=== PATIENT | female | born 1995 | race Caucasian/White ===

== ENCOUNTER 2016-12-02 19:03 | Emergency (ER) | payer OTHER ==
[~2016-12-02] VITALS: Ht 162.6 cm; Wt 56.5 kg
[~2016-12-02 19:03] MED LIST: Ibuprofen PO
[2016-12-02 19:34] VITALS: Ht 162.6 cm; Wt 56.5 kg
[2016-12-02 20:30] LABS: URINE BLOOD (Dip) POC 3+ (NEGATIVE)
--- NOTE | 2016-12-02 20:32 | RADRPT ---
PROCEDURE: US Pelvis. CLINICAL INDICATION: Abnormal vaginal bleeding. TECHNIQUE: The pelvis was evaluated with transabdominal and transvaginal sonography in the axial a nd sagittal planes. COMPARISON: No prior study is available for comparison. FINDINGS: Uterus: 8.0 x 4.0 x 5.6 cm. Endometrium: 12.2 mm. Right ovary: 2.3 x 1.3 x 2.2 cm. Left ovary: 3.8 x 2.3 x 3.3 cm. Uterine masses: None. Ovarian masses: None. Color Doppler and pulsed Doppler sonography demonstrate normal flow to the ova talib. Other pelvic masses: None. Free fluid: None. IMPRESSION: 1. Normal pelvic ultrasound. RPTAT: QQ .Cam Leonard MD, MD Date Time Electronically viewed and signed by .Cam Leonard MD, on 12/02/2016 20:32 .R/
[2016-12-02] MEDS ORDERED: MEDR2.5T PO (20:52)
--- NOTE | 2016-12-02 21:01 | ERD ---
ER Documentation Chief Complaint Date/Time DATE: 12/02/16 TIME: 20:59 Chief Complaint Vaginal bleed with back pain and cramping. not HPI This is a 21-year-old female presents to the ER with vaginal spotting that started 3 weeks ago. Patient is also complaining of back pain and mild pelvic cramping. Patient states that she is using panty liners for bleeding and bleeding is worse whenever she urinates or after she takes a shower. Patient denies any vaginal discharge. Patient denies any urinary frequency or dysuria. Patient denies any weakness or dizziness. ROS 12 point review of systems was done, all negative except per HPI. Medications Home Meds Active Scripts Medroxyprogesterone Acetate* (Provera*) 2.5 Mg Tablet, 2.5 MG PO DAILY for 5 Days, TAB Prov:COSTA JOHNSON 12/02/16 [Ibuprofen] 600 MG TAB No Conflict Check, 600 MG PO Q6, #20 TAB 0 Refills Prov:COLE DAHL MD 09/26/15 Allergies Allergies: Coded Allergies: No Known Allergy (Unverified , 09/24/15) PMhx/Soc Hx Alcohol Use: No Hx Substance Use: No Hx Tobacco Use: No Smoking Status: Never smoker Physical Exam Vitals Vital Signs Date Time Temp Pulse Resp B/P Pulse Ox O2 Delivery O2 Flow Rate FiO2 12/02/16 19:34 98.2 72 20 113/70 100 Physical Exam GENERAL: The patient is well developed and appropriate for usual state of health , in no apparent distress. HEENT: Atraumatic. CHEST: Clear to auscultation bilaterally. There are no rales, wheezes or rhonchi. HEART: Regular rate and rhythm. No murmurs, clicks, rubs or gallops. ABDOMEN: Soft, nontender and nondistended. Good bowel sounds. No rebound or guarding. No gross peritonitis. No gross organomegaly or masses. No Be sign or McBurney point tenderness. BACK: No midline or flank tenderness. NEURO: Alert and oriented Results 24 hrs Laboratory Tests Test 12/02/16 20:30 Bedside Urine pH (LAB) 7.0 Bedside Urine Protein (LAB) 1+ Bedside Urine Glucose (UA) Negative Bedside Urine Ketones (LAB) Negative Bedside Urine Blood 3+ Bedside Urine Nitrite (LAB) Negative Bedside Urine Leukocyte Esterase (L Negative Procedures/MDM This is a 21-year-old female presents to the ER with vaginal bleeding. At this time suspicion for anemia is low. Patient has only been spotting and only uses panty liners. She does not have any weaknesses or fatigue. Suspicion for is low. Suspicion for urinary tract infection or pyelonephritis is low. She likely has dysfunctional uterine bleeding. She will be sent home with a 5 day course of Provera. Patient is to follow-up with her primary care doctor within 1-2 days return to ER sooner if symptoms. Medical decision making shared with the patient she understands and agrees with plan. Departure Diagnosis: Primary Impression: Dysfunctional uterine bleeding Condition: Stable Patient Instructions: Dysfunctional Uterine Bleeding Additional Instructions: Call your primary care doctor TOMORROW for an appointment during the next 1-2 days.See the doctor sooner or return here if your condition worsens before your appointment time. COSTA JOHNSON Dec 02, 2016 21:01
== END 2016-12-02 21:15 | disposition home or self-care (01) ==
LOC: FTE 19:03
DX: N93.8 Other specified abnormal uterine and vaginal bleeding (principal); R10.2 Pelvic and perineal pain
CPT/HCPCS: 76856; 81003; Z7502